=== PATIENT | male | born 1960 | race Caucasian/White ===

== ENCOUNTER 2018-10-20 13:56 | Emergency (ER) | payer MEDICAID ==
[~2018-10-20] VITALS: Ht 172.7 cm; Wt 70.3 kg
[2018-10-20] MEDS ORDERED: TAMSULOSIN HCL0.4 MG ORAL (14:23)
[2018-10-20] MEDS ORDERED: IBUPROFEN600 MG ORAL (14:23)
[2018-10-20] MEDS ORDERED: ASPIRIN-LOW81 MG ORAL (14:23)
[2018-10-20] MEDS ORDERED: METHADONE HCL5 MG PO (14:23)
--- NOTE | 2018-10-20 14:32 | Emergency Room Report ---
History of Present Illness General Chief Complaint: Skin Rash/Abscess Source: Patient Present Illness HPI 58-year-old male, history of opiate dependence on methadone, cellulitis, presenting with bilateral leg wounds and cellulitis. He has been taking clindamycin at assisted living facility in his finish 7 days worth. Says it is not getting better but only getting worse. He was to have his multiple ulcerations on his legs, says that it usually from a small trauma like hitting his leg onto something and then it never heals. Also noted to have a dry ulceration at the bottom of his left toe, says that it's been there for months. No history of diabetes. No history of DVT. Allergies: Coded Allergies: No Known Allergies (Unverified , 10/20/18) Patient History Past Medical History: see triage record Past Surgical History: none Pertinent Family History: none Reviewed Nursing Documentation: PMH: Agreed; PSxH: Agreed Nursing Documentation-PM Past Medical History: No History, Except For Review of Systems All Other Systems: negative except mentioned in HPI Physical Exam Vital Signs Date Time Temp Pulse Resp B/P (MAP) Pulse Ox O2 Delivery O2 Flow Rate FiO2 10/20/18 14:02 97.3 90 18 152/104 98 Room Air Sp02 EP Interpretation: reviewed, normal General Appearance: alert, GCS 15, non-toxic, mild distress Head: normocephalic, atraumatic Eyes: bilateral eye normal inspection, bilateral eye PERRL, bilateral eye EOMI ENT: normal ENT inspection, normal pharynx, normal voice, moist mucus membranes Neck: normal inspection, full range of motion, supple Respiratory: normal inspection, lungs clear, normal breath sounds, no respiratory distress, no retraction, no wheezing, speaking full sentences, chest symmetrical Cardiovascular #1: normal inspection, regular rate, rhythm, no edema, normal capillary refill Cardiovascular #2: 2+ radial (R), 2+ radial (L) Gastrointestinal: normal inspection, non tender, soft, non-distended, no guarding Genitourinary: no CVA tenderness Musculoskeletal: other - Bilateral legs with 2+ edema as well as erythema. Left leg with erythema from ankle all the way to lower knee. Multiple superficial ulcerations of various sizes, largest is 4 x 2in, bottom of left toe noted to have a round ulceration with a necrotic center, dry base, no purulent drainage, and no erythema surrounding this ulceration, distal pulses are intact Neurologic: normal inspection, alert, oriented x3, responsive, motor strength/ tone normal, sensory intact, normal gait, speech normal Psychiatric: normal inspection, judgement/insight normal, memory normal Skin: other - see MSK Medical Decision Making Diagnostic Impression: Primary Impression: Cellulitis ER Course 58-year-old male with redness/swelling to left leg for 7 days DDX: Cellulitis / benign dermatitis No crepitus / pain out of proportion / rapid spreading for concern for nec fasc Plan: Antibiotics Anticipate admission / anticipate discharge as patient appears well ER course: Patient has been monitored during ED stay, HD stable Given IV fluids as well as antibiotics Disposition: Patient is to be Transferred to [facility] due to insurance purposes. He will be transferred by S. He is in stable condition. I signed out patient to Dr Oglesby Please note that this Emergency Department Report was dictated using [employer] surveyor technology software, occasionally this can lead to erroneous entry secondary to interpretation by the dictation equipment. EKG Diagnostic Results EP Interpretation: Yes Rate: normal Rhythm: NSR ST Segments: No acute changes , prolonged QTC at 507 ASA given to patient: No Rhythm Strip EP Interpretation: Yes Rate: 92 Rhythm: NSR, no PVCs, no ectopy Chest X-ray CXR: Ordered: Yes 1 view Indication: Cellulitis EP interpretation: Yes Interpretation: No consolidation, no effusion, no PTX, no acute cardiopulmonary disease Impression: No acute disease Electronically signed by Sal Antoine MD Laboratory Tests Test 10/20/18 15:00 White Blood Count 8.5 K/UL (4.8-10.8) Red Blood Count 4.33 M/UL (4.70-6.10) L Hemoglobin 13.0 G/DL (14.2-18.0) L Hematocrit 39.6 % (42.0-52.0) L Mean Corpuscular Volume 91 FL (80-99) Mean Corpuscular Hemoglobin 29.9 PG (27.0-31.0) Mean Corpuscular Hemoglobin Concent 32.7 G/DL (32.0-36.0) Red Cell Distribution Width 12.8 % (11.6-14.8) Platelet Count 424 K/UL (150-450) Mean Platelet Volume 5.7 FL (6.5-10.1) L Neutrophils (%) (Auto) 52.9 % (45.0-75.0) Lymphocytes (%) (Auto) 30.7 % (20.0-45.0) Monocytes (%) (Auto) 9.8 % (1.0-10.0) Eosinophils (%) (Auto) 4.3 % (0.0-3.0) H Basophils (%) (Auto) 2.3 % (0.0-2.0) H Sodium Level 138 MMOL/L (136-145) Potassium Level 4.0 MMOL/L (3.5-5.1) Chloride Level 104 MMOL/L (98-107) Carbon Dioxide Level 29 MMOL/L (21-32) Anion Gap 5 mmol/L (5-15) Blood Urea Nitrogen 13 mg/dL (7-18) Creatinine 0.8 MG/DL (0.55-1.30) Estimate Glomerular Filtration Rate > 60 mL/min (>60) Glucose Level 89 MG/DL (74-106) Lactic Acid Level 1.20 mmol/L (0.4-2.0) Calcium Level 8.7 MG/DL (8.5-10.1) Total Bilirubin 0.3 MG/DL (0.2-1.0) Aspartate Amino Transferase (AST) 26 U/L (15-37) Alanine Aminotransferase (ALT) 24 U/L (12-78) Alkaline Phosphatase 93 U/L (46-116) Total Protein 8.2 G/DL (6.4-8.2) Albumin 2.7 G/DL (3.4-5.0) L Globulin 5.5 g/dL Albumin/Globulin Ratio 0.5 (1.0-2.7) L Last Vital Signs Date Time Temp Pulse Resp B/P (MAP) Pulse Ox O2 Delivery O2 Flow Rate FiO2 10/20/18 14:02 97.3 90 18 152/104 98 Room Air Disposition: XFER T-[facility]M HOSP Condition: Serious FatumaoSal M.D. Oct 20, 2018 14:32
--- NOTE | 2018-10-20 14:36 | NUR ---
ED Nurse Note:pt. was BIBA from assist living with chronic vascular wounds on bilateral lower extrimities, also has old wound on the bottom of left big toe, pt. is A/Ox4 ambulatory, VSS, seen by LANEY MORGAN
[2018-10-20] MEDS ORDERED: DiphenhydrAMINE 50mg/ml Inj IVP ONE (15:00)
[2018-10-20] MEDS ORDERED: Morphine Sulfate 4mg/ml Inj (IV/IM USE ONLY) IVP ONE (15:00)
--- NOTE | 2018-10-20 15:14 | Diagnostic Imaging Report ---
Indication: Dyspnea Comparison: None A single view chest radiograph was obtained. Findings: Cardiomediastinal appearance is within normal limits for age. The lungs are clear. Pulmonary vascularity is appropriate. The diaphragmatic contour is smooth and costophrenic angles are sharp. No pleural effusions are identified. The bones are unremarkable. Impression: No acute findings
[2018-10-20 15:15] VITALS: BP 152/104
--- NOTE | 2018-10-20 15:26 | NUR ---
ED Nurse Note:wounds documented and dry dressing applied
[2018-10-20 15:27] LABS: ANION GAP 5 mmol/L (5-15); BLOOD UREA NITROGEN 13 mg/dL (7-18); CALCIUM 8.7 MG/DL (8.5-10.1); CARBON DIOXIDE 29 MMOL/L (21-32); CHLORIDE 104 MMOL/L (98-107); CREATININE 0.8 MG/DL (0.55-1.30); SODIUM 138 MMOL/L (136-145)
[2018-10-20 15:29] LABS: BASOPHILS % (AUTO) 2.3 % (0.0-2.0); EOSINOPHILS % (AUTO) 4.3 % (0.0-3.0); HEMATOCRIT 39.6 % (42.0-52.0); LYMPHOCYTES % (AUTO) 30.7 % (20.0-45.0); MEAN CORPUSCULAR VOLUME 91 FL (80-99); MONOCYTES % (AUTO) 9.8 % (1.0-10.0); NEUTROPHILS % (AUTO) 52.9 % (45.0-75.0); PLATELET COUNT 424 K/UL (150-450); RED BLOOD COUNT 4.33 M/UL (4.70-6.10); RED CELL DISTRIBUTION WIDTH 12.8 % (11.6-14.8); WHITE BLOOD COUNT 8.5 K/UL (4.8-10.8)
[2018-10-20 15:39] LABS: ALANINE AMINOTRANSFERASE 24 U/L (12-78); ALBUMIN 2.7 G/DL (3.4-5.0); ALBUMIN/GLOBULIN RATIO 0.5 (1.0-2.7); ALKALINE PHOSPHATASE 93 U/L (46-116); ASPARTATE AMINO TRANSFERASE 26 U/L (15-37); BILIRUBIN,TOTAL 0.3 MG/DL (0.2-1.0)
[2018-10-20] MEDS ORDERED: Vancomycin 1.5gm/D5W 275ml 250 ML IVPB ONE (16:00)
[2018-10-20] MEDS ORDERED: cefTRIAXone 1 GM in NS 55 ML IVPB ONE (16:00)
[2018-10-20 16:06] LABS: APPEARANCE,URINE CLEAR; BILIRUBIN, URINE NEGATIVE (NEGATIVE); COLOR,URINE PALE YELLOW; GLUCOSE, URINE (UA) NEGATIVE (NEGATIVE); KETONES,URINE NEGATIVE (NEGATIVE); LEUKOCYTE ESTERASE ,URINE NEGATIVE (NEGATIVE); NITRITE,URINE NEGATIVE (NEGATIVE); PH,URINE 6.5 (4.5-8.0); PROTEIN,URINE NEGATIVE (NEGATIVE); UROBILINOGEN,URINE 1 MG/DL (0.0-1.0)
[2018-10-20 18:30] VITALS: BP 165/99
--- NOTE | 2018-10-20 18:44 | NUR ---
ED Nurse Note:called report to [facility]- given to [place] nurse
--- NOTE | 2018-10-20 19:10 | NUR ---
ED Nurse Note: Received Pt and report from day shift. knowing Pt will transfer to another hospital. Will await for EMT.
[2018-10-20 20:00] VITALS: BP 155/106
--- NOTE | 2018-10-20 20:05 | NUR ---
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 Pt is AO x 3, VSS, on room air no distress. Report and Pt's belongings given to EMT Hailey.
[2018-10-20 20:30] VITALS: BP 155/106
--- NOTE | 2018-10-23 13:08 | Cardiology Report ---
APPROVED REPORT EKG Measurement Heart [id number] Normal sinus rhythm Moderate voltage criteria for LVH, may be normal variant Cannot rule out Inferior infarct, age undetermined Prolonged QT Abnormal ECG
== END 2018-10-20 20:00 | disposition short-term general hospital (02) ==
LOC: EDBD 13:56 → EMR 15:25
DX: L03.116 Cellulitis of left lower limb (principal); L03.115 Cellulitis of right lower limb; S81.802A Unspecified open wound, left lower leg, initial encounter; S81.801A Unspecified open wound, right lower leg, initial encounter; X58.XXXA Exposure to other specified factors, initial encounter; Y92.098 Other place in other non-institutional residence as the place of occurrence of the external cause; F11.20 Opioid dependence, uncomplicated
CPT/HCPCS: 36415; 71045; 80053; 81003; 83605; 85025; 87040; 93005; 96361; 96365; 96368; 96375; 99285; J0696; J1200; J2270; J3370